=== PATIENT | female | born 1990 | race Caucasian/White ===

== ENCOUNTER 2016-07-22 07:43 | Emergency (ER) | payer OTHER ==
[~2016-07-22] VITALS: Ht 170.2 cm; Wt 122.5 kg
[2016-07-22] MEDS ORDERED: ONDANSETRON PF 4 MG/2 ML VIAL. IV PRN (08:15)
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
[2016-07-22] MEDS: FENTANYL PF 100 MCG/2 ML VIAL. IV PRN ×2 (09:13→10:23)
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
[2016-07-22 10:23] VITALS: BP 132/73
[2016-07-22] MEDS ORDERED: OXYC-323 PO (10:32)
== END 2016-07-22 11:15 | disposition home or self-care (01) ==
LOC: ER 07:43
DX: S42.002A Fracture of unspecified part of left clavicle, initial encounter for closed fracture (principal); S00.83XA Contusion of other part of head, initial encounter; V47.5XXA Car driver injured in collision with fixed or stationary object in traffic accident, initial encounter; Y93.89 Activity, other specified; Y92.89 Other specified places as the place of occurrence of the external cause; Y99.8 Other external cause status
CPT/HCPCS: 29105; 70450; 70486; 71020; 72125; 73030; 96374; 96375; 96376; 99284; J2405; J3010

== ENCOUNTER 2016-07-31 11:17 | Day surgery (SDC) | payer OTHER, BC ==
[~2016-07-31] VITALS: Ht 170.2 cm; Wt 128.0 kg
[~2016-07-31 11:17] MED LIST: CEFAZOLIN 2GM PREMIX 50 ML IV ONE; FENTANYL PF 100 MCG/2 ML VIAL. IV PRN; HYDROMORPHONE 2 MG/ML VIAL. IV PRN; IV RINGERS,LACTATED 1000ML 1,000 ML IV SCH; LIDOCAINE 1% 1 ML SYRINGE. ID PRN; MORPHINE SULFATE 2 MG/ML DISP.SYRIN. IV PRN; ONDANSETRON PF 4 MG/2 ML VIAL. IV PRN; OXYC-323 PO; PROCHLORPERAZINE 10 MG/2 ML VIAL. IV PRN
[2016-07-31] MEDS ORDERED: ETON68IM2 SQ (12:28)
[2016-07-31] MEDS ORDERED: CEFAZOLIN 2GM PREMIX 50 ML IV ONE (12:42)
[2016-07-31] MEDS ORDERED: SUCCINYLCHOLINE 200 MG/10 ML VIAL. ONE (12:42)
[2016-07-31] MEDS ORDERED: PROPOFOL 20 ML IV ONE (12:42)
[2016-07-31] MEDS ORDERED: LIDOCAINE 2% 100 MG/5 ML DISP.SYRIN. ONE (12:42)
[2016-07-31] MEDS ORDERED: ROCURONIUM 50 MG/5 ML VIAL. ONE (12:42)
[2016-07-31] MEDS ORDERED: FENTANYL PF 100 MCG/2 ML VIAL. ONE ×2 (12:42→15:09)
[2016-07-31 12:58] LABS: NEG OBC UR NEG; POS OBC UR POS
--- NOTE | 2016-07-31 13:57 | DISCH ---
DISCHARGE INSTRUCTIONS Condition on Discharge Condition on Discharge: Stable Activity After Discharge Activity Instructions for Disc: Other, see below Other activity instructions: fine motor use of left arm and gentle motion Lifting Instructions after Dis: No pulling or pushing, Do not lift >10 pounds Diet after Discharge Diet after Discharge: Regular Wound Incision Care Wound/Incision Care: Ice to area for comfort, Change dressing Other wound/incision instructi: remove outer dressing in 2 days, may then shower Contacting the DR. after DC Call your doctor for: Concerns you may have Follow-Up Follow up with: Alayna 10 days DENISSE SALAMANCA MD Jul 31, 2016 13:57
[2016-07-31] MEDS ORDERED: OXYC-244 PO (14:03)
[2016-07-31] MEDS ORDERED: SEVOFLURANE 61 TO 120 MINUTES. IH ONE (14:27)
[2016-07-31] MEDS ORDERED: DEXAMETHASONE SOD PHOS 20 MG/5 ML VIAL. ONE (14:27)
[2016-07-31] MEDS ORDERED: ACETAMINOPHEN INTRAVENOUS 100 ML IV ONE (14:47)
[2016-07-31] MEDS ORDERED: ONDANSETRON PF 4 MG/2 ML VIAL. ONE (15:43)
--- NOTE | 2016-07-31 16:27 | PDOC ---
BRIEF OPERATIVE NOTE Date: Jul 31, 2016 Pre-Op Diagnosis displaced left clavicle fx Post-Op Diagnosis same Procedure Performed ORIF left clavicle fx Surgeon Alayna Anesthesia Type: General Blood Loss 75cc Findings above Complications none DENISSE SALAMANCA MD Jul 31, 2016 16:27
[2016-07-31] MEDS: FENTANYL PF 100 MCG/2 ML VIAL. IV PRN ×4 (16:29→16:53)
[2016-07-31] MEDS: MORPHINE SULFATE 2 MG/ML DISP.SYRIN. IV PRN ×4 (16:59→17:33)
[2016-07-31] MEDS ORDERED: OXYCODONE/APAP 7.5/325 TABLET. PO PRN (17:30)
[2016-07-31 17:31] VITALS: BP 142/69
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
== END 2016-07-31 18:18 | disposition home or self-care (01) ==
LOC: SURG 11:17
PROVIDERS: ATTEND Orthopaedic Surgery
DX: S42.022A Displaced fracture of shaft of left clavicle, initial encounter for closed fracture (principal); E66.9 Obesity, unspecified; Z72.89 Other problems related to lifestyle
CPT/HCPCS: 23515; 76000; 81025; C1713; J0131; J0330; J0690; J1100; J2270; J2405; J2704; J3010; J7120